=== PATIENT | male | born 1955 | race African-American/Black ===

== ENCOUNTER 2020-12-01 13:16 | Inpatient (IN) | payer OTHER ==
[2020-12-01 15:20] LABS: BASO % 0.7 % (0-2.0); EOS % 1.9 % (0-4.5); HEMATOCRIT 40.3 % (35.4-49); HEMOGLOBIN 13.4 GM/dL (11.7-16.9); MCH 29.7 pg (25.7-33.7); MCHC 33.3 g/dl (32.0-35.9); MEAN CELL VOLUME 89.1 fl (80-96); MEAN PLT VOLUME 8.9 fl (7.5-11.1); MONO % 5.8 % (3.8-10.2); NEUT % 60.6 % (42.8-82.8); PLATELET COUNT 222 10^3/uL (134-434); RBC 4.52 M/mm3 (4.00-5.60); RDW 17.2 % (11.9-15.9); WHITE BLOOD COUNT 4.8 K/mm3 (4.0-10.0)
[2020-12-01 15:24] LABS: EPI CELLS 35 /uL (0-25.1); HYALINE CASTS 2 /uL (0-3.1); URINE APPEARANCE CLOUDY; URINE BACTERIA 247 /uL (0-1359); URINE BILIRUBIN NEGATIVE (NEGATIVE); URINE COLOR YELLOW; URINE GLUCOSE (UA) NEGATIVE (NEGATIVE); URINE KETONE NEGATIVE (NEGATIVE); URINE LEUK ESTERASE TRACE (NEGATIVE); URINE NITRITE NEGATIVE (NEGATIVE); URINE PROTEIN NEGATIVE (NEGATIVE); URINE RBC 276 /uL (0-23.9); URINE WBC 49 /uL (0-25.8)
[2020-12-01 15:26] LABS: INR 1.09 (0.83-1.09); PROTHROMBIN TIME (PATIENT) 13.4 SEC (9.7-13.0)
[2020-12-01 15:29] LABS: ACTIVATED PTT 35.2 SECONDS (25.2-36.5)
[2020-12-01 15:43] LABS: CHLORIDE 108 mmol/L (98-107); SODIUM 142 mmol/L (136-145)
[2020-12-01 15:45] LABS: CALCIUM 8.6 mg/dL (8.5-10.1)
[2020-12-01 15:46] LABS: ALBUMIN 3.2 g/dl (3.4-5.0); ANION GAP 5 MMOL/L (8-16); CO2 29 mmol/L (21-32); GLUCOSE,RANDOM 75 mg/dL (74-106)
[2020-12-01 15:49] LABS: CHOLESTEROL 171 mg/dL (50-200); CREATININE 0.5 mg/dL (0.55-1.3); SGOT/AST 13 U/L (15-37); SGPT/ALT 14 U/L (13-61); TRIGLYCERIDES 120 mg/dL (0-150)
[2020-12-01 15:50] LABS: BILIRUBIN,TOTAL 0.5 mg/dL (0.2-1); LDL CHOLESTEROL (ONLY SJRH) 107 mg/dL (5-100); TOT PROT 6.8 g/dl (6.4-8.2)
[2020-12-01 15:51] LABS: ALK PHOS 88 U/L (45-117); HDL CHOLESTEROL 39 mg/dL (40-60)
[2020-12-01] MEDS ORDERED: ASPIRIN 325 MG TABLET PO ONE (16:34)
[2020-12-01] MEDS ORDERED: ASPIRIN 325 MG ENTERIC COATED TABLET (FP) ONE (16:47)
[2020-12-01] MEDS ORDERED: LABETALOL HCL 100 MG TABLET (FP) PO SCH (18:19)
[2020-12-01] MEDS ORDERED: ATORVASTATIN CA 80 MG TABLET (FP) PO ONE (18:21)
[2020-12-01] MEDS ORDERED: LABETALOL HCL 100 MG TABLET (FP) ONE (18:23)
[2020-12-01] MEDS ORDERED: ATORVASTATIN CA 80 MG TABLET (FP) ONE (18:24)
[2020-12-01] MEDS: ENOXAPARIN NA (PORCINE) 40 MG/0.4 ML DISP.SYRIN SQ SCH (18:24)
[2020-12-01] MEDS ORDERED: amLODIPine BESYLATE 5 MG TABLET (FP) PO ONE (18:29)
[2020-12-01 23:31] VITALS: BMI 18.1
[2020-12-02 07:19] LABS: BASO % 0.8 % (0-2.0); EOS % 1.8 % (0-4.5); HEMATOCRIT 39.2 % (35.4-49); HEMOGLOBIN 13.1 GM/dL (11.7-16.9); LYMPH % 46.4 % (8-40); MCH 30.1 pg (25.7-33.7); MCHC 33.3 g/dl (32.0-35.9); MEAN CELL VOLUME 90.5 fl (80-96); MEAN PLT VOLUME 9.2 fl (7.5-11.1); PLATELET COUNT 198 10^3/uL (134-434); RBC 4.33 M/mm3 (4.00-5.60); RDW 16.8 % (11.9-15.9); WHITE BLOOD COUNT 5.4 K/mm3 (4.0-10.0)
[2020-12-02 07:28] LABS: CALCIUM 8.2 mg/dL (8.5-10.1)
[2020-12-02 07:29] LABS: BLOOD UREA NITROGEN 10.7 mg/dL (7-18); MAGNESIUM 2.2 mg/dL (1.8-2.4)
[2020-12-02 07:32] LABS: CREATININE 0.5 mg/dL (0.55-1.3); PHOSPHOROUS 4.1 mg/dL (2.5-4.9)
[2020-12-02 07:33] LABS: BILIRUBIN,TOTAL 0.6 mg/dL (0.2-1); TOT PROT 6.3 g/dl (6.4-8.2)
[2020-12-02] MEDS: ASPIRIN COATED 81 MG TABLET.EC PO SCH (09:44)
[2020-12-02] MEDS: ENOXAPARIN NA (PORCINE) 40 MG/0.4 ML DISP.SYRIN SQ SCH (09:44)
[2020-12-03] MEDS ORDERED: amLODIPine BESYLATE 5 MG TABLET (FP) PO ONE (01:04)
[2020-12-03] MEDS: ENOXAPARIN NA (PORCINE) 40 MG/0.4 ML DISP.SYRIN SQ SCH (09:30)
[2020-12-03] MEDS: ASPIRIN COATED 81 MG TABLET.EC PO SCH (09:30)
[2020-12-03] MEDS ORDERED: CLOPIDOGREL BISULFATE 75 MG TABLET (FP) PO SCH (10:00)
[2020-12-03] MEDS ORDERED: amLODIPine BESYLATE 5 MG TABLET (FP) PO SCH (10:00)
[2020-12-03] MEDS ORDERED: PANTOPRAZOLE 40 MG TABLET PO SCH (10:00)
[2020-12-03 15:17] VITALS: PULSE 58
[2020-12-03] MEDS ORDERED: metoPROLOL SUCCINATE 25 MG TAB.SR.24H (FP) PO SCH (17:45)
[2020-12-03 17:56] VITALS: BP 152/93; TEMP 98.3
[2020-12-04] MEDS ORDERED: metoPROLOL SUCCINATE 25 MG TAB.SR.24H (FP) PO SCH (10:00)
== END 2020-12-03 17:59 | disposition home or self-care (01) | DRG 45 ==
LOC: JER 13:16 → JERBED 16:21 → J4S 18:44
PROVIDERS: ADMIT Internal Medicine; ATTEND Internal Medicine
DX: I63.9 Cerebral infarction, unspecified (principal); G93.89 Other specified disorders of brain; I10 Essential (primary) hypertension; Z91.14 Patient's other noncompliance with medication regimen; Z86.12 Personal history of poliomyelitis; R00.1 Bradycardia, unspecified; G14 Postpolio syndrome
CPT/HCPCS: 36415; 70450-TC; 70496-TC; 70498-TC; 70551-TC; 71045-TC-FY; 80053; 80061; 81003; 82550; 82553; 83036; 83721; 83735; 84100; 84443; 84484; 85025; 85610; 85730; 86850; 86900; 86901; 87086; 93005; 93010; 93880-TC; 97116-GP; 97161-GP; 99285-25; C9803; U0003; U0005